=== PATIENT | female | born 1990 | race Caucasian/White ===

== ENCOUNTER 2016-12-25 20:58 | Emergency (ER) | payer BC ==
--- NOTE | ~2016-12-25 | CR63 ---
[facility]. [facility] A Service of [facility] RADIOLOGY TEXT RESULTS PATIENT: TATIANA FELICIANO LOCATION: SED : [birth year] UNIT #: [id number] AGE: [address]: CHRISTOPHER RYAN SEX: F ORDER DR: [id number] [address] [address] [id number] E MR#: [id number] #: [id number] NAME: TATIANA FELICIANO. : 1990 SEX: F STUDY DATE/TIME: 12/25/2016 22:33 UNIT: SED ROOM: STUDY DESCRIPTION: CR Chest 2 View Attending Physician: Christopher Ryan Ordering Physician: Christopher Ryan Primary Care Physician: No Primary Care Physician MEDICAL IMAGING REPORT This report is preliminary unless electronic signature is present. EXAM Two-view chest 12/25/2016 HISTORY 26-year-old female with cough and congestion beginning today. COMPARISON None. FINDINGS 2 views of the chest demonstrate clear lungs. No pleural effusion or pneumothorax. Heart size and mediastinum are normal. Pulmonary vasculature normal. IMPRESSION No acute cardiopulmonary findings Dictated by... Mariano London M.D. THIS IS AN ELECTRONICALLY VERIFIED REPORT Mariano London M.D. at 12/26/2016 4:49 PM JONATHAN/clarence TD: 12/26/2016 04:28 JOB #: [id number] MEDICAL IMAGING REPORT Page 1 of 1
[2016-12-25 20:22] LABS: INFLUENZA A NEG (NEG); INFLUENZA B NEG (NEG)
[~2016-12-25 20:58] MED LIST: ANUSOL30 GM TOP; BIRTH CONTROL; COLACE PO; FLOVENT7.9 GM INH; NO MEDICATIONS; PRENATAL1 TA1 PO; REGLAN10 MG PO; TOPAMAX25 MG PO; VEETIDS 500500 M1 PO; VITAMIN D1000 UNIT PO
[2016-12-25 21:51] LABS: BASOPHIL% 0.3 % (0-2.5); DIFF IND NO; EOSINOPHIL% 0.1 % (0.0-7.0); HEMATOCRIT 36.4 % (35.0-45.0); LYMPHOCYTE# 1.3 X10e3 (1.0-3.5); LYMPHOCYTE% 10.7 % (17.0-45.0); MEAN CELL VOLUME 79.8 FL (83-96); MEAN CORPUSCULAR HEMOGLOBIN 26.3 PG (28-34); MEAN PLATELET VOLUME 7.8 FL (6.5-11.5); MONOCYTE# 1.5 X10e3 (0-1.0); MONOCYTE% 12.8 % (3.0-12.0); NEUTROPHIL# 9.1 X10e3 (1.5-7.1); NEUTROPHIL% 76.1 % (40-75); PLATELET COUNT 211 X10e3 (140-420); RED BLOOD COUNT 4.56 X10e (3.90-5.30); RED CELL DISTRIBUTION WIDTH 15.4 % (11.0-15.5)
[2016-12-25 22:09] LABS: ALBUMIN SERUM 3.8 g/dL (3.5-5.0); BILIRUBIN,TOTAL 0.5 mg/dL (0.2-2.0); BUN/CREATININE RATIO 8.33; CALCIUM SERUM 8.5 mg/dL (8.4-10.2); CREATININE SERUM 0.6 mg/dL (0.6-1.4); GLOM FILT RATE Estimated 127.6 mL/min (>60); POTASSIUM 3.3 mmol/L (3.5-5.1); PROTEIN TOTAL SERUM 6.9 g/dL (6.0-8.3)
[2016-12-25 22:12] LABS: URINE SOURCE CLEAN CATCH
[2016-12-25 22:14] LABS: MICRO INDICATED? YES; URINE APPEARANCE CLEAR; URINE BILIRUBIN NEG (NEG); URINE BLOOD TRACE-LYSED (NEG); URINE COLOR YELLOW; URINE GLUCOSE NEG (NORM); URINE KETONE NEG (NEG); URINE LEUKOCYTE ESTERASE NEG (NEG); URINE NITRATE NEG (NEG); URINE PH 6.5 (5-8); URINE PROTEIN NEG (NEG); URINE SPECIFIC GRAVITY <=1.005 (1.003-1.035); URINE UROBILINOGEN 0.2 MG/DL (NORM)
[2016-12-25 22:16] LABS: URINE BACTERIA NEG (NEG); URINE SQUAMOUS EPITHELIAL CELL OCCAS /[HPF]; URINE WBC 0-2 /[HPF] (0-5)
== END 2016-12-25 23:23 | disposition home or self-care (01) ==
LOC: SED 20:58
PROVIDERS: Nurse Practitioner
DX: B34.9 Viral infection, unspecified (principal); J06.9 Acute upper respiratory infection, unspecified; J45.909 Unspecified asthma, uncomplicated; G43.909 Migraine, unspecified, not intractable, without status migrainosus
CPT/HCPCS: 71020; 80053; 81003; 84703; 85025; 87040; 87651; 87804; 94640; 99283